=== PATIENT | female | born 1975 | race Caucasian/White ===

== ENCOUNTER 2016-12-21 16:22 | Emergency (ER) ==
--- NOTE | 2016-12-21 16:32 | ED.PDOC ---
General ED Provider: Dr. HEATHER VEGA JR Chief Complaint: Respiratory Complaint Stated Complaint: Dry cough, body aches. Chest hurts to cough. States "Icough until I puke." Pt thinks may have pneumonia. Took 4 cipro tabs leftover from her daughter's Rx. States has not taken any cough med because she has glaucoma. [ End ]98.3 90 20 99% 120/86 6/10. allergic to sulfa was on cipro Time Seen by Physician: 16:35 Mode of Arrival: Walk-In Information Source: Patient Exam Limitations: No limitations Primary Care Provider: SANKET ALBARRAN Nursing and Triage Documentation Reviewed and Agree: No Review of Systems - Review Of Systems Constitutional: Reports: Malaise, Weakness Eyes: Reports: Blurred vision, Other Ears, Nose, Mouth, Throat: Reports: Throat pain Respiratory: Reports: Cough Cardiac: Reports: No symptoms GI: Reports: No symptoms : Reports: No symptoms Musculoskeletal: Reports: Muscle pain, Other Skin: Reports: No symptoms Neurological: Reports: No symptoms Endocrine: Reports: No symptoms Hematologic/Lymphatic: Reports: No symptoms All Other Systems: Other Past Medical History - Past Medical History Previously Healthy: Yes Endocrine: Reports: None Cardiovascular: Reports: None Respiratory: Reports: COPD Hematological: Reports: None Gastrointestinal: Reports: None Genitourinary: Reports: None Neuro/Psych: Reports: None Musculoskeletal: Reports: None Cancer: Reports: None Other Pertinent Past Medical History: glaucoma - Surgical History General Surgical History: Reports: Hysterectomy, Tonsillectomy, Other ( prosthetic left eye ) - Family History Family History: Reports: Unknown Physical Exam - Physical Exam Appearance: Ill-appearing, Thin Ill-appearing: Moderate Pain Distress: Moderate Eyes: TOVA, EOMI, Conjunctiva clear ENT: Ears normal, Nose normal, Oropharynx normal Neck: Supple Respiratory: Airway patent, Breath sounds equal, Breath sounds diminished, Respirations nonlabored, Rhonchi Cardiovascular: RRR, Pulses normal, No rub, No murmur GI/: Soft, Nontender, No masses, Bowel sounds normal, No Organomegaly Musculoskeletal: Normal strength, ROM intact, No edema, No calf tenderness Skin: Warm, Dry, Normal color Neurological: Sensation intact, Motor intact, Reflexes intact, Cranial nerves intact, Alert, Oriented Psychiatric: Affect appropriate, Mood appropriate Critical Care Note - Critical Care Note Total Time (mins): 0 Course - Course Hematology/Chemistry: 12/21/16 16:44 Orders, Labs, Meds: Lab Review 12/21/16 16:44 WBC 5.94 RBC 5.09 Hgb 15.3 Hct 44.2 MCV 86.8 MCH 30.1 MCHC 34.6 RDW Coeff of Laura 12.7 Plt Count 189 Immature Gran % (Auto) 0.2 Neut % (Auto) 66.8 Lymph % (Auto) 21.2 [place] % (Auto) 11.3 H Eos % (Auto) 0.0 Baso % (Auto) 0.5 Immature Gran # (Auto) 0.0 Neut # 4.0 Lymph # 1.3 Hunt # 0.7 Eos # 0.0 Baso # 0.0 Orders Category Date Time Status CBC W/ AUTO DIFF Stat LAB 12/21/16 16:44 Completed Hydrocodone Bit/Acetaminophen [[place] 7.5-325] MEDS 12/21/16 16:52 Discontinued 1 tab PO ONCE STA CXR [CHEST, 2 VIEWS PA & LAT] Stat RADS 12/21/16 16:36 Completed Medications Discontinued Medications Generic Name Dose Route Start Last Admin Trade Name Freq PRN Reason Stop Dose Admin Acetaminophen/Hydrocodone Bitart 1 tab 12/21/16 16:52 12/21/16 17:29 [place] 7.5-325 PO 12/21/16 16:53 1 tab ONCE STA Administration Vital Signs: Temp Pulse Resp BP Pulse Ox 12/21/16 16:23 98.3 F 90 20 120/86 99 Departure - Departure Time of Disposition: 17:12 Disposition: HOME SELF-CARE Discharge Problem: COPD (chronic obstructive pulmonary disease) with acute bronchitis Instructions: Acute Bronchitis (ED) Condition: Good Pt referred to PMD for follow-up: Yes Additional Instructions: increase fluids may use Tessalon for cough increase fluids decrease tobacco exposure return if fever over 101.0 if worsening Prescriptions: Hydrocodone Bit/Acetaminophen [[place] 5-325] 1 - 2 tab PO Q6HR PRN #12 tablet PRN Reason: pain Benzonatate [Tessalon Perles] 200 mg PO TID PRN #20 capsule PRN Reason: Cough Doxycycline Monohydrate [Monodox] 100 mg PO BID #20 capsule Home Medications: Ambulatory Orders Benzonatate [Tessalon Perles] 200 mg PO TID PRN #20 capsule 12/21/16 Doxycycline Monohydrate [Monodox] 100 mg PO BID #20 capsule 12/21/16 Hydrocodone Bit/Acetaminophen [[place] 5-325] 1 - 2 tab PO Q6HR PRN #12 tablet 02/01
[2016-12-21 16:41] VITALS: BP 120/86; TEMP 98.3; BMI 23.2
[2016-12-21 16:47] LABS: BASOPHILS % (AUTO) 0.5 % (0.0-3.0); HEMATOCRIT 44.2 % (37.0-47.0); HEMOGLOBIN 15.3 g/dl (12.0-16.0); IMMATURE GRANULOCYTE % (AUTO) 0.2 % (0.0-5.0); LYMPHOCYTES # (AUTO) 1.3 K/uL (0.60-3.4); LYMPHOCYTES % (AUTO) 21.2 (10.0-50.0); MEAN CORPUSCULAR HEMOGLOBIN 30.1 pg (27.0-31.0); MEAN CORPUSCULAR HGB CONC 34.6 (31.8-35.4); MEAN CORPUSCULAR VOLUME 86.8 fl (81.0-99.0); MONOCYTES # (AUTO) 0.7 K/uL (0.4-2.0); MONOCYTES % (AUTO) 11.3 (0-10); NEUTROPHILS % (AUTO) 66.8; PLATELET COUNT 189 10^3/uL (140-440); RED BLOOD COUNT 5.09 10^6/ul (4.20-5.40); WHITE BLOOD COUNT 5.94 K/ul (4.6-10.2)
[2016-12-21] MEDS ORDERED: NORCO 7.5-325 PO STA (16:52)
--- NOTE | 2016-12-21 17:05 | DI ---
EXAM: Chest two views HISTORY: Cough COMPARISON: 08/27/2014 TECHNIQUE: Two views of the chest were performed FINDINGS: The lungs are clear. There is no pleural effusion or pneumothorax. The heart is normal in size. The mediastinal contour is normal. There are no acute abnormalities of the bones. IMPRESSION: No acute cardiopulmonary process.
== END 2016-12-21 17:58 | disposition home or self-care (01) ==
LOC: ED 16:22
DX: J44.0 Chronic obstructive pulmonary disease with (acute) lower respiratory infection (principal); J20.9 Acute bronchitis, unspecified
CPT/HCPCS: 36415; 85025; 99282

== ENCOUNTER 2017-01-30 23:00 | Emergency (ER) ==
[2017-01-30 23:29] VITALS: BP 118/81; TEMP 98.5; BMI 21.9
[2017-01-30] MEDS ORDERED: BACTROBAN TP STA (23:42)
[2017-01-30] MEDS ORDERED: NORCO 10-325 PO STA (23:42)
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
[2017-01-30] MEDS ORDERED: TENIVAC IM ONE (23:49)
== END 2017-01-31 00:15 | disposition home or self-care (01) ==
LOC: ED 23:00
DX: T24.201A Burn of second degree of unspecified site of right lower limb, except ankle and foot, initial encounter (principal); T31.0 Burns involving less than 10% of body surface; X17.XXXA Contact with hot engines, machinery and tools, initial encounter; F17.210 Nicotine dependence, cigarettes, uncomplicated
CPT/HCPCS: 90471; 99283

== ENCOUNTER 2017-02-09 12:37 | Outpatient (CLI) ==
[2017-02-09 13:22] LABS: COCAIN SCREEN,URINE NEGATIVE (NEGATIVE)
== END 2017-02-09 12:38 | disposition home or self-care (01) ==
LOC: LAB 12:37
PROVIDERS: ATTEND Family Medicine
DX: R82.5 Elevated urine levels of drugs, medicaments and biological substances (principal)
CPT/HCPCS: 80306

== ENCOUNTER 2017-08-24 11:58 | Emergency (ER) ==
[2017-08-24 12:06] VITALS: BP 129/68; TEMP 98.5; BMI 23.3
[2017-08-24] MEDS ORDERED: ZOFRAN 4 MG/2 ML IVP STA ×3 (12:25→14:41)
[2017-08-24] MEDS ORDERED: SODIUM CHLORIDE 1,000 ML IV STA ×2 (12:25→14:11)
--- NOTE | 2017-08-24 12:27 | ED.PDOC ---
General ED Provider: Dr. 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 nvd Time Seen by Physician: 12:28 Mode of Arrival: Walk-In Information Source: Patient Exam Limitations: No limitations Primary Care Provider: SANKET ALBARRAN Nursing and Triage Documentation Reviewed and Agree: No Review of Systems - Review Of Systems Constitutional: Reports: Malaise Eyes: Reports: Blindness Ears, Nose, Mouth, Throat: Reports: Throat pain Respiratory: Reports: No symptoms Cardiac: Reports: No symptoms GI: Reports: Abdominal pain, Diarrhea, Nausea, Vomiting : Reports: No symptoms Musculoskeletal: Reports: Back pain Skin: Reports: No symptoms Neurological: Reports: No symptoms Endocrine: Reports: No symptoms Hematologic/Lymphatic: Reports: No symptoms All Other Systems: Other (note eye problems) Past Medical History - Past Medical History Previously Healthy: Yes Endocrine: Reports: None Cardiovascular: Reports: None Respiratory: Reports: COPD Hematological: Reports: None Gastrointestinal: Reports: None Genitourinary: Reports: None Neuro/Psych: Reports: None, Anxiety Musculoskeletal: Reports: None Cancer: Reports: None, Other (glaucoma history staph ophthamitis congentital cararacts) Last Menstrual Period: NA Other Pertinent Past Medical History: glaucoma - Surgical History General Surgical History: Reports: Hysterectomy, Tonsillectomy, Other ( prosthetic left eye MULTIPLE SURGERIES TO RIGHT EYE) - Family History Family History: Reports: Unknown - Social History Smoking Status: Current every day smoker, Light tobacco smoker Hx Substance Use: Yes (POT FOR GLAUCOMA) Alcohol Screening: None Physical Exam - Physical Exam Appearance: Ill-appearing, Thin Ill-appearing: Moderate Pain Distress: Moderate Eyes: Left pupil size (prosthetic eye- ;eft cprneal opaque with slight increased turgor will have eye exam october) ENT: Ears normal, Nose normal, Oropharynx normal Neck: Supple Respiratory: Airway patent, Breath sounds clear, Breath sounds equal, Respirations nonlabored Cardiovascular: RRR, Pulses normal, No rub, No murmur, Tachycardia GI/: Soft, No masses, Tender, Bowel sounds hyperactive Musculoskeletal: Normal strength, ROM intact, No edema, No calf tenderness Skin: Warm, Dry, Normal color Neurological: Sensation intact, Motor intact, Reflexes intact, Cranial nerves intact, Alert, Oriented Psychiatric: Affect appropriate, Mood appropriate Critical Care Note - Critical Care Note Total Time (mins): 10 Course - Course Hematology/Chemistry: 08/24/17 13:30 08/24/17 13:30 Orders, Labs, Meds: Lab Review 08/24/17 08/24/17 13:30 13:30 WBC 13.46 H RBC 4.39 Hgb 13.4 Hct 39.3 MCV 89.5 MCH 30.5 MCHC 34.1 RDW Coeff of Laura 12.8 Plt Count 215 Immature Gran % (Auto) 0.4 Neut % (Auto) 87.1 Lymph % (Auto) 7.9 L [place] % (Auto) 4.4 Eos % (Auto) 0.0 Baso % (Auto) 0.2 Immature Gran # (Auto) 0.1 Neut # 11.7 H Lymph # 1.1 [place] # 0.6 Eos # 0.0 Baso # 0.0 Sodium 144 Potassium 3.8 Chloride 109 H Carbon Dioxide 26 Anion Gap 12.8 BUN 15 Creatinine 0.74 Estimated GFR (MDRD) 87.00 BUN/Creatinine Ratio 20.27 Glucose 117 H Calcium 9.0 Total Bilirubin 0.35 AST 21 ALT 25 Alkaline Phosphatase 72 Total Protein 6.4 Albumin 3.6 Globulin 2.8 Albumin/Globulin Ratio 1.29 Amylase 42 Lipase 7 L Orders Category Date Time Status IV [ED IV/MEDIPORT/POWERPORT] .ONCE EMERGENCY 08/24/17 12:25 Active AMYLASE Stat LAB 08/24/17 13:30 Completed CBC W/ AUTO DIFF Stat LAB 08/24/17 13:30 Completed COMPREHENSIVE METABOLIC PANEL Stat LAB 08/24/17 13:30 Completed LIPASE Stat LAB 08/24/17 13:30 Completed 0.9 % Sodium Chloride [Saline Flush] MEDS 08/24/17 12:25 Discontinued 1 syr IVF PRN PRN Ondansetron HCl/Pf [Zofran 4 mg/2 ml] MEDS 08/24/17 12:25 Discontinued 4 mg IVP ONCE STA Ondansetron HCl/Pf [Zofran 4 mg/2 ml] MEDS 08/24/17 13:10 Discontinued 4 mg IVP ONCE STA Ondansetron HCl/Pf [Zofran 4 mg/2 ml] MEDS 08/24/17 14:41 Discontinued 4 mg IVP ONCE STA Sodium Chloride 0.9% [Sodium Chloride] 1,000 ml MEDS 08/24/17 12:25 Discontinued IV BOLUS Sodium Chloride 0.9% [Sodium Chloride] 1,000 ml MEDS 08/24/17 14:11 Discontinued IV BOLUS Medications Discontinued Medications Generic Name Dose Route Start Last Admin Trade Name Freq PRN Reason Stop Dose Admin Sodium Chloride 1,000 mls @ 1,000 mls/hr 08/24/17 12:25 08/24/17 12:36 Sodium Chloride IV 08/24/17 13:24 1,000 mls/hr BOLUS STA Administration Sodium Chloride 1,000 mls @ 1,000 mls/hr 08/24/17 14:11 08/24/17 14:33 Sodium Chloride IV 08/24/17 15:10 1,000 mls/hr BOLUS STA Administration Ondansetron HCl 4 mg 08/24/17 12:25 08/24/17 12:36 Zofran 4 Mg/2 Ml IVP 08/24/17 12:26 4 mg ONCE STA Administration Ondansetron HCl 4 mg 08/24/17 13:10 08/24/17 13:20 Zofran 4 Mg/2 Ml IVP 08/24/17 13:11 4 mg ONCE STA Administration Ondansetron HCl 4 mg 08/24/17 14:41 08/24/17 15:19 Zofran 4 Mg/2 Ml IVP 08/24/17 14:42 4 mg ONCE STA Administration Sodium Chloride 1 syr 08/24/17 12:25 08/24/17 13:20 Saline Flush IVF 1 syr PRN PRN Administration To flush IV Vital Signs: Temp Pulse Resp BP Pulse Ox 08/24/17 12:01 98.5 F 51 L 16 129/68 100 Departure - Departure Time of Disposition: 15:10 Disposition: HOME SELF-CARE Discharge Problem: Nausea, Vomiting Instructions: Acute Nausea and Vomiting (ED) Condition: Fair Pt referred to PMD for follow-up: Yes Additional Instructions: zofran for nausea may use phenergan if not able to get zofran clear liquids for 12hours and until no nausea increase liquids to 10-12 8 ounce cups a day for three days return if worsening if ffever over 101.0 recheck PMD one week sooner if not resolved Prescriptions: Ondansetron HCl [Zofran Tab] 4 mg PO QID PRN #12 tablet PRN Reason: Nausea / Vomiting Promethazine HCl [Phenergan Tab] 25 mg PO QID PRN #12 tablet PRN Reason: Nausea / Vomiting Allergies/Adverse Reactions: Allergies Sulfa (Sulfonamide Antibiotics) Adverse Reaction (Verified 08/24/17 12:00) Home Medications: Ambulatory Orders Ondansetron HCl [Zofran Tab] 4 mg PO QID PRN #12 tablet 08/24/17 Promethazine HCl [Phenergan Tab] 25 mg PO QID PRN #12 tablet 08/24/17 Timolol Maleate 0.25% [Timoptic 0.25% Opth] 1 drop OP BID 08/24/17
[2017-08-24 13:39] LABS: BASOPHILS % (AUTO) 0.2 % (0.0-3.0); HEMATOCRIT 39.3 % (37.0-47.0); HEMOGLOBIN 13.4 g/dl (12.0-16.0); IMMATURE GRANULOCYTE % (AUTO) 0.4 % (0.0-5.0); LYMPHOCYTES # (AUTO) 1.1 K/uL (0.60-3.4); LYMPHOCYTES % (AUTO) 7.9 (10.0-50.0); MEAN CORPUSCULAR HEMOGLOBIN 30.5 pg (27.0-31.0); MEAN CORPUSCULAR HGB CONC 34.1 (31.8-35.4); MEAN CORPUSCULAR VOLUME 89.5 fl (81.0-99.0); MONOCYTES # (AUTO) 0.6 K/uL (0.4-2.0); MONOCYTES % (AUTO) 4.4 (0-10); NEUTROPHILS # (AUTO) 11.7 K/ul (2.0-6.9); NEUTROPHILS % (AUTO) 87.1; PLATELET COUNT 215 10^3/uL (140-440); RED BLOOD COUNT 4.39 10^6/ul (4.20-5.40); WHITE BLOOD COUNT 13.46 K/ul (4.6-10.2)
[2017-08-24 13:59] LABS: ALBUMIN 3.6 g/dL (3.4-5.0); ALBUMIN/GLOBULIN RATIO 1.29; ANION GAP 12.8; BILIRUBIN,TOTAL 0.35 mg/dL (0.00-1.20); BUN/CREATININE RATIO 20.27; CREATININE 0.74 mg/dL (0.60-1.30); POTASSIUM 3.8 mmol/L (3.5-5.10); TOTAL PROTEIN 6.4 g/dL (6.4-8.2)
== END 2017-08-24 16:03 | disposition home or self-care (01) ==
LOC: ED 11:58
DX: R11.2 Nausea with vomiting, unspecified (principal); R19.7 Diarrhea, unspecified; R10.9 Unspecified abdominal pain; F17.210 Nicotine dependence, cigarettes, uncomplicated; M54.6 Pain in thoracic spine; Q15.0 Congenital glaucoma; Q12.0 Congenital cataract
CPT/HCPCS: 36415; 80053; 82150; 83690; 85025; 96360; 96361; 96376; 99284

== ENCOUNTER 2017-12-04 15:46 | Emergency (ER) ==
[2017-12-04 15:51] VITALS: BP 135/79; TEMP 98; BMI 22.8
--- NOTE | 2017-12-04 16:07 | ED.PDOC ---
Medical Screening Exam - General Information Time Seen by Physician*: 15:55 Mode of Arrival: Wheelchair Information Source: Patient - History Chief Complaint: Nausea/Vomiting Stated Complaint: not feeling well Symptoms Are: Resolved Severity: None - Review Of Systems Constitutional: None CV: Reports: None Respiratory: Reports: None GI: Reports: None : Reports: None Musculoskeletal: Reports: None Neuro: Reports: None - Examination Findings Visit Related to : No - Medical Decision Making Emergency Medical Condition: No Physical Exam - Physical Exam Appearance: Well-appearing, No pain distress, Well-nourished Eyes: TOVA, EOMI, Conjunctiva clear ENT: Ears normal, Nose normal, Oropharynx normal Respiratory: Airway patent, Breath sounds clear, Breath sounds equal, Respirations nonlabored Cardiovascular: RRR, Pulses normal, No rub, No murmur GI/: Soft, Nontender, No masses, Bowel sounds normal, No Organomegaly Musculoskeletal: Normal strength, ROM intact, No edema, No calf tenderness Skin: Warm, Dry, Normal color Neurological: Sensation intact, Motor intact, Reflexes intact, Cranial nerves intact, Alert, Oriented Psychiatric: Affect appropriate, Mood appropriate Re-Evaluation - Re-Evaluation Time of Re-Evaluation: 16:05 Status: Unchanged Vital Signs Stable: Yes Appearance: NAD Lungs: Clear Skin: Warm and Dry Neuro: Alert and Oriented X3 CV: RRR Critical Care Note - Critical Care Note Total Time (mins): 0 Course - Course Vital Signs: Temp Pulse Resp BP Pulse Ox 12/04/17 15:48 98.0 F 52 L 16 135/79 99 Departure - Departure Time of Disposition: 16:10 (AMA) Disposition: HOME SELF-CARE Discharge Problem: Nausea Condition: Good Pt referred to PMD for follow-up: Yes IPMP verified?: No Additional Instructions: return if not better or worse Allergies/Adverse Reactions: Allergies Sulfa (Sulfonamide Antibiotics) Adverse Reaction (Verified 12/04/17 15:51) Home Medications: Ambulatory Orders Timolol Maleate 0.25% [Timoptic 0.25% Opth] 1 drop OP BID 08/24/17 Disposition Discussed With: Patient (pt went AMA)
[2017-12-04] MEDS ORDERED: ZOFRAN 4 MG/2 ML IM STA (17:16)
--- NOTE | 2017-12-05 07:48 | DI ---
EXAM: Radiographs, abdomen HISTORY: Vomiting. COMPARISON: None available. TECHNIQUE: Supine view. FINDINGS: Air and stool noted throughout the colon, including the rectum. No dilated small bowel lo ops are seen. No masses or abnormal calcifications identified. Fat planes are maintained. Degenera tive changes present in the spine. IMPRESSION: No acute radiographic abnormality of the abdomen.
== END 2017-12-04 19:06 | disposition home or self-care (01) ==
LOC: ED 15:46
DX: R11.0 Nausea (principal); D72.829 Elevated white blood cell count, unspecified
CPT/HCPCS: 36415; 80048; 85025; 96372; 99283

== ENCOUNTER 2017-12-27 13:22 | Outpatient (CLI) | payer OTHER ==
--- NOTE | 2017-12-27 13:59 | US ---
EXAM: Thyroid ultrasound HISTORY: Abnormal thyroid labs COMPARISON: None TECHNIQUE: Thyroid ultrasound was performed FINDINGS: Right thyroid measures 1.3 x 1.3 x 5.1 cm. Left thyroid measures 1.3 x 1.2 x 4.2 cm. Thy roid isthmus measures 0.1 cm. Thyroid normal in echogenicity and vascularity. A tiny hypoechoic nod ule in the right inferior thyroid measures 0.2 cm. IMPRESSION: Tiny right thyroid nodule. Otherwise, unremarkable thyroid ultrasound.
== END 2017-12-27 13:23 | disposition home or self-care (01) ==
LOC: RAD 13:22
PROVIDERS: ATTEND Family Medicine
DX: R94.6 Abnormal results of thyroid function studies (principal)